=== PATIENT | female | born 1960 | race Caucasian/White ===

== ENCOUNTER 2021-12-31 15:25 | Observation (INO) ==
[2021-12-31] MEDS ORDERED: Acetaminophen 325 MG TABLET PO PRN (20:18)
[2021-12-31] MEDS ORDERED: Naloxone 0.4 MG/ML INJ IVP PRN (20:18)
[2021-12-31] MEDS ORDERED: Ondansetron 4 MG/2 ML VIAL IVP PRN (20:18)
[2021-12-31] MEDS ORDERED: Melatonin 3 MG TABLET PO PRN (20:18)
[2021-12-31] MEDS ORDERED: *HR* Heparin 5,000 UNIT/ML VIAL IVP PRN (20:22)
[2021-12-31] MEDS ORDERED: *HR* HYDROcodone/Acet 5/325 mg TABLET PO PRN (21:13)
[2021-12-31] MEDS: Heparin 25,000UNIT/250ML 1/2NS 25,000 UNIT/250 ML IV.SOLN IVC SCH (21:21)
[2022-01-01] MEDS ORDERED: Potassium Chloride Elixir 20 MEQ/15 ML UDC PO ONE (02:12)
[2022-01-01 05:14] LABS: Basophils % 0.3 %; Eosinophils % 0.4 %; Hematocrit 37.3 % (35.3-44.9); Hemoglobin 12.1 g/dL (11.5-15.4); Immature Granulocytes % 0.3 % (0-4); Lymphocytes # 1.9 K/mcL (0.6-4.6); Lymphocytes % 17.9 %; Mean Corpuscular HGB Conc 32.4 g/dL (31.6-35.5); Mean Corpuscular Hemoglobin 29.3 pg (28.0-33.3); Mean Corpuscular Volume 90.3 fL (83.0-100.0); Mean Platelet Volume 11.9 fL (9.4-12.4); Monocytes # 1.1 K/mcL (0.0-1.3); Monocytes % 10.6 %; Neutrophils # 7.4 K/mcL (1.6-8.9); Platelet Count 161 K/mcL (140-400); Red Blood Count 4.13 M/mcL (3.82-4.97); Red Cell Distribution Width 12.6 % (11.5-14.5); Segmented Neutrophils % 70.5 %; White Blood Count 10.5 K/mcL (4.3-11.1)
[2022-01-01 05:16] LABS: INR 1.2; Prothrombin Time 13.9 Seconds (9.4-12.1)
[2022-01-01 05:19] LABS: Activated Partial Thrombo Time 39.8 Seconds (26.0-36.0)
[2022-01-01 05:38] LABS: Alanine Aminotransferase 17 Units/L (7-52); Albumin 3.2 g/dL (3.5-5.7); Albumin/Globulin Ratio 1.1 (1.1-2.2); Alkaline Phosphatase 67 Units/L (34-104); Aspartate Amino Transferase 16 Units/L (13-39); BUN/Creatinine Ratio 10 (6-26); Bilirubin,Total 0.6 mg/dL (0.3-1.0); Blood Urea Nitrogen 6 mg/dL (6-20); Carbon Dioxide 21 mEq/L (23-29); Chloride 106 mEq/L (98-107); Globulin 2.8 g/dL (2.4-3.5); Glucose 79 mg/dL (70-105); Magnesium 1.8 mg/dL (1.6-2.6); Osmolality,Calculated 279 (280-300); Phosphorous 2.5 mg/dL (2.7-4.5); Potassium 3.2 mEq/L (3.5-5.1); Sodium 136 mEq/L (136-145); Troponin I < 0.03 ng/mL (< 0.04); eGFR For African Americans > 60 (> 60); eGFR For Non-African Americans > 60 (> 60)
[2022-01-01] MEDS: *HR* Heparin 5,000 UNIT/ML VIAL IVP PRN (05:48)
[2022-01-01] MEDS ORDERED: Gadolinium Contrast Agent (WT Based) IV PRN (08:31)
[2022-01-01] MEDS ORDERED: Iopamidol - 370 500 ML MLS IVP ONE (08:31)
[2022-01-01] MEDS: Acetaminophen 325 MG TABLET PO PRN ×2 (08:42→16:48)
[2022-01-01] MEDS ORDERED: Ipratropium/Albuterol Neb 3 ML IH PRN (09:25)
[2022-01-01] MEDS ORDERED: Ondansetron 4 MG/2 ML VIAL ONE (12:42)
[2022-01-01] MEDS ORDERED: *HR* FentaNYL (PF) 100 MCG/2 ML VIAL ONE (12:42)
[2022-01-01] MEDS ORDERED: Lidocaine -MPF 2% 5 ML VIAL ONE (12:42)
[2022-01-01] MEDS ORDERED: *HR* Propofol 200 MG/20 ML VIAL IVP ONE (12:42)
[2022-01-01] MEDS ORDERED: Lidocaine HCL 4 ML Topical Solution (Laryng-O-Jet Kit Sterile Pak) TP ONE (12:42)
[2022-01-01] MEDS ORDERED: Ondansetron 4 MG/2 ML VIAL IVP PRN (14:09)
[2022-01-01 20:46] LABS: Appearance of Body Fluid Cloudy (Clear); Volume of Body Fluid 17 mL
[2022-01-02] MEDS: Acetaminophen 325 MG TABLET PO PRN (03:17)
[2022-01-02 05:33] LABS: Basophils % 0.2 %; Hematocrit 35.7 % (35.3-44.9); Hemoglobin 11.5 g/dL (11.5-15.4); Immature Granulocytes % 0.4 % (0-4); Lymphocytes # 1.5 K/mcL (0.6-4.6); Lymphocytes % 14.9 %; Mean Corpuscular HGB Conc 32.2 g/dL (31.6-35.5); Mean Corpuscular Hemoglobin 29.2 pg (28.0-33.3); Mean Corpuscular Volume 90.6 fL (83.0-100.0); Neutrophils # 7.3 K/mcL (1.6-8.9); Platelet Count 188 K/mcL (140-400); Red Blood Count 3.94 M/mcL (3.82-4.97); Red Cell Distribution Width 12.6 % (11.5-14.5); Segmented Neutrophils % 74.5 %; White Blood Count 9.8 K/mcL (4.3-11.1)
[2022-01-02 05:53] LABS: BUN/Creatinine Ratio 20 (6-26); Blood Urea Nitrogen 15 mg/dL (6-20); Carbon Dioxide 25 mEq/L (23-29); Chloride 108 mEq/L (98-107); Glucose 103 mg/dL (70-105); Osmolality,Calculated 289 (280-300); Potassium 3.9 mEq/L (3.5-5.1); Sodium 139 mEq/L (136-145); eGFR For African Americans > 60 (> 60); eGFR For Non-African Americans > 60 (> 60)
[2022-01-02] MEDS: *HR* Heparin 5,000 UNIT/ML VIAL IVP PRN (06:30)
[2022-01-02 07:36] VITALS: O2SAT 96
[2022-01-02] MEDS: Heparin 25,000UNIT/250ML 1/2NS 25,000 UNIT/250 ML IV.SOLN IVC SCH (08:21)
[2022-01-02] MEDS ORDERED: Apixaban 5 MG TABLET PO SCH (12:00)
[2022-01-02 12:06] VITALS: BP 129/95; PULSE 77; TEMP 97.3
== END 2022-01-02 15:30 | disposition home or self-care (01) ==
LOC: 3NENU → SUATTDRO 19:46
PROVIDERS: ADMIT Internal Medicine; ATTEND Registered Nurse